=== PATIENT | female | born 1950 | race Caucasian/White ===

== ENCOUNTER 2022-02-15 18:10 | Emergency (ER) | payer OTHER ==
[~2022-02-15] VITALS: Ht 152.4 cm; Wt 68.0 kg
[2022-02-15] MEDS ORDERED: Tessalon Perle100 MG PO (20:44)
[2022-02-15 21:27] LABS: Influenza B, PCR NEGATIVE (NEGATIVE); Resp Syncytial Virus, PCR NEGATIVE (NEGATIVE); SARS-Cov-2 (COVID-19) PCR, MMC NEGATIVE (NEGATIVE)
[2022-02-15 21:40] LABS: Influenza A, PCR POSITIVE (NEGATIVE)
== END 2022-02-15 20:56 | disposition home or self-care (01) ==
LOC: ER 18:10
PROVIDERS: Physician Assistant
DX: J10.1 Influenza due to other identified influenza virus with other respiratory manifestations (principal); Z20.822 Contact with and (suspected) exposure to COVID-19
CPT/HCPCS: 0241U; 99283; A9270